=== PATIENT | female | born 1985 | race African-American/Black ===

== ENCOUNTER 2018-02-24 22:20 | Emergency (ER) | payer OTHER ==
[~2018-02-24] VITALS: Ht 162.6 cm; Wt 72.6 kg
[2018-02-24 22:55] VITALS: Ht 162.6 cm; Wt 72.6 kg
[2018-02-24 23:53] VITALS: BP 147/107
== END 2018-02-24 23:53 | disposition home or self-care (01) ==
LOC: ED 22:20
DX: S82.52XD Displaced fracture of medial malleolus of left tibia, subsequent encounter for closed fracture with routine healing (principal); S82.832D Other fracture of upper and lower end of left fibula, subsequent encounter for closed fracture with routine healing; S82.892D Other fracture of left lower leg, subsequent encounter for closed fracture with routine healing; X58.XXXD Exposure to other specified factors, subsequent encounter
CPT/HCPCS: J1885